=== PATIENT | female | born 1945 | race Two or more races ===

== ENCOUNTER 2020-08-21 08:14 | Day surgery (SDC) | payer OTHER | END 2020-08-21 11:57 | disposition home or self-care (01) | LOC: AMB-ENDOS 08:14 | PROVIDERS: ATTEND Surgery | DX: K62.4 Stenosis of anus and rectum (principal); Z20.822 Contact with and (suspected) exposure to COVID-19 ==

== ENCOUNTER 2020-09-21 10:45 | Inpatient (IN) | payer OTHER ==
[~2020-09-21] VITALS: Ht 152.4 cm; Wt 78.0 kg
[2020-10-04] MEDS ORDERED: ATORVASTATIN CA10 MG PO (14:01)
[2020-10-04] MEDS ORDERED: FORTAMET500 MG PO (14:01)
[2020-10-04] MEDS ORDERED: ATACAND16 MG PO (14:02)
[2020-10-04] MEDS ORDERED: VITAMIN D PO (14:03)
[2020-10-04] MEDS ORDERED: LASIX20 MG PO (14:03)
[2020-10-11] MEDS ORDERED: VITAMIN D310 MC1 (07:54)
[2020-10-14] MEDS ORDERED: PERCOCET 5-3251 EACH PO (11:57)
== END 2020-10-14 12:36 | disposition home or self-care (01) | DRG 330 ==
LOC: O/R 10-11 07:17 → SURH 10-11 11:30 → SURG 10-11 15:23
PROVIDERS: ADMIT Surgery; ATTEND Surgery
PROC: 0DSP4ZZ Reposition Rectum, Percutaneous Endoscopic Approach (ICD-10-PCS; principal; 2020-10-11 10:15)
DX: Z43.3 Encounter for attention to colostomy (principal); N82.3 Fistula of vagina to large intestine; K59.04 Chronic idiopathic constipation; E03.9 Hypothyroidism, unspecified; E11.9 Type 2 diabetes mellitus without complications; I10 Essential (primary) hypertension